=== PATIENT | male | born 1975 | race Caucasian/White ===

== ENCOUNTER 2020-03-04 21:59 | Emergency (ER) | payer BC, OTHER ==
[2020-03-04 22:06] VITALS: RESP 18; TEMP 98
[2020-03-04] MEDS ORDERED: SODIUM CHLORIDE 0.9% 1,000 ML IV STA (22:34)
[2020-03-04] MEDS ORDERED: ASPIRIN 81 MG PO STA (22:34)
[2020-03-04] MEDS ORDERED: NITROGLYCERIN SL TABS 0.4 MG TAB SUBLINGUAL STA (22:34)
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
[2020-03-04 22:45] LABS: Basophils # (A) 0.1 k/uL (0-0.2); Basophils % (A) 1 %; Eosinophils # (A) 0.5 k/uL (0-0.7); Eosinophils % (A) 5 %; HCT 49.9 % (39.0-53.0); HGB 16.3 gm/dL (13.0-17.5); Lymphocytes # (A) 3.6 k/uL (1.0-4.8); Lymphocytes % (A) 37 %; MCHC 32.7 g/dL (31.0-37.0); MCV 91.9 fL (80.0-100.0); Monocytes # (A) 0.8 k/uL (0-1.0); Monocytes % (A) 8 %; Neutrophils # (A) 4.6 k/uL (1.3-7.7); Neutrophils % (A) 47 %; Platelet Count 206 k/uL (150-450); RBC 5.43 m/uL (4.30-5.90); RDW 13.5 % (11.5-15.5); WBC 9.8 k/uL (3.8-10.6)
[2020-03-04 22:59] LABS: D-Dimer 0.26 mg/L FEU (<0.60); Partial Thromboplastin Time 25.8 sec (22.0-30.0)
[2020-03-04 23:03] LABS: ALT 19 U/L (4-49); AST 25 U/L (17-59); African American GFR (CKD) >90 (>60 ml/min/1.73 sqM); Albumin 4.4 g/dL (3.5-5.0); Alkaline Phosphatase 50 U/L (38-126); Anion Gap 8 mmol/L; Blood Urea Nitrogen 12 mg/dL (9-20); Calcium 9.6 mg/dL (8.4-10.2); Carbon Dioxide 31 mmol/L (22-30); Chloride 98 mmol/L (98-107); Glucose 97 mg/dL (74-99); Non-African American GFR(CKD) >90 (>60 ml/min/1.73 sqM); Potassium 3.9 mmol/L (3.5-5.1); Sodium 137 mmol/L (137-145); Total Bilirubin 0.5 mg/dL (0.2-1.3); Total Protein 7.2 g/dL (6.3-8.2)
--- NOTE | 2020-03-04 23:12 | XR ---
EXAMINATION TYPE: XR chest 2V DATE OF EXAM: 03/04/2020 COMPARISON: NONE HISTORY: Left side pain TECHNIQUE: FINDINGS: Heart and mediastinum are normal. Lungs are clear. Diaphragm is normal. Bony thorax appears normal. Pulmonary vascularity is normal. There are chest leads. There is old posterior right-sided r ib fracture. IMPRESSION: No active cardiopulmonary disease. Normal heart.
[2020-03-04] MEDS ORDERED: KETOROLAC 30 MG/ML 1 ML VIAL IVP STA (23:33)
[2020-03-04 23:57] VITALS: BP 103/53; PULSE 54
== END 2020-03-05 00:54 | disposition left against medical advice (07) ==
LOC: EC 21:59
DX: Z03.818 Encounter for observation for suspected exposure to other biological agents ruled out (principal); R07.9 Chest pain, unspecified; I10 Essential (primary) hypertension; Z53.29 Procedure and treatment not carried out because of patient's decision for other reasons; Z79.899 Other long term (current) drug therapy; Z79.82 Long term (current) use of aspirin; Z88.0 Allergy status to penicillin; Z87.891 Personal history of nicotine dependence; Z98.61 Coronary angioplasty status
CPT/HCPCS: 99285; 96374; 96361 ×2; 36415; 85379; 83880; 80053; 83690; 83735; 84484; 85025; 85610; 85730; 87635; 71046; J1885

== ENCOUNTER 2020-08-10 19:37 | Inpatient (IN) | payer BC ==
[2020-08-10] MEDS ORDERED: KETOROLAC 15 MG/ML 1 ML VIAL IVP STA (20:42)
[2020-08-10] MEDS ORDERED: SODIUM CHLORIDE 0.9% 1,000 ML IV STA (20:42)
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
[2020-08-10 21:14] LABS: Basophils # (A) 0.2 k/uL (0-0.2); Basophils % (A) 2 %; Eosinophils # (A) 0.7 k/uL (0-0.7); Eosinophils % (A) 6 %; HCT 49.1 % (39.0-53.0); HGB 16.1 gm/dL (13.0-17.5); Lymphocytes % (A) 27 %; MCHC 32.7 g/dL (31.0-37.0); MCV 91.6 fL (80.0-100.0); Mean Platelet Volume 7.7; Monocytes # (A) 0.8 k/uL (0-1.0); Monocytes % (A) 7 %; Neutrophils # (A) 6.2 k/uL (1.3-7.7); Neutrophils % (A) 57 %; Platelet Count 206 k/uL (150-450); RBC 5.37 m/uL (4.30-5.90); WBC 10.9 k/uL (3.8-10.6)
[2020-08-10 21:28] LABS: ALT 21 U/L (4-49); AST 31 U/L (17-59); African American GFR (CKD) >90 (>60 ml/min/1.73 sqM); Albumin 4.2 g/dL (3.5-5.0); Alkaline Phosphatase 46 U/L (38-126); Amylase 52 U/L (30-110); Anion Gap 4 mmol/L; Blood Urea Nitrogen 14 mg/dL (9-20); Calcium 9.8 mg/dL (8.4-10.2); Carbon Dioxide 29 mmol/L (22-30); Chloride 104 mmol/L (98-107); Glucose 89 mg/dL (74-99); Non-African American GFR(CKD) >90 (>60 ml/min/1.73 sqM); Sodium 137 mmol/L (137-145); Total Bilirubin 0.7 mg/dL (0.2-1.3); Total Protein 6.9 g/dL (6.3-8.2)
--- NOTE | 2020-08-10 22:03 | US ---
EXAMINATION TYPE: US gallbladder DATE OF EXAM: 08/10/2020 COMPARISON: NONE CLINICAL HISTORY: pain. Abdominal pain x 3 days. EXAM MEASUREMENTS: Liver Length: 17.3 cm Gallbladder Wall: 0.25 cm CBD: 0.76 cm Right Kidney: 11.3 x 5.4 x 5.1 cm Pancreas: Limited. Portions seen appear slightly heterogeneous. Liver: Increased attenuation. Appears heterogeneous. Measures upper limits of normal. Hypoechoic area seen near gallbladder measuring 2.6 x 3.1 x 3.0 cm. ?Focal fatty sparing? Gallbladder: Measures 9.7 cm in length. Minimal internal echoes seen versus artifact. Evidence for sonographic Villalta's sign: Yes CBD: Appears dilated. Right Kidney: No hydronephrosis or masses seen IMPRESSION: Mild fatty infiltration of the liver. No gallstones or dilated ducts. Large common bile duct could relate to some gallbladder dysfunction. No dilation of the intrahepatic bile ducts.
[2020-08-10] MEDS ORDERED: ONDANSETRON 4 MG/2 ML VIAL IVP STA (22:13)
[2020-08-10] MEDS ORDERED: HYDROmorphone 1 MG/ML 1 ML SYRINGE IVP STA (22:13)
[2020-08-10 23:07] LABS: Appearance,Urine Clear (Clear); Bilirubin,Urine Negative (Negative); Blood,Urine Negative (Negative); Color,Urine Colorless; Glucose,Urine (UA) Negative (Negative); Ketones,Urine Negative (Negative); Leukocyte Esterase,Urine Negative (Negative); Nitrite,Urine Negative (Negative); PH, Urine 6.5 (5.0-8.0); Protein,Urine Negative (Negative); Specific Gravity,Urine 1.003 (1.001-1.035); Urobilinogen,Urine <2.0 mg/dL (<2.0)
--- NOTE | 2020-08-11 00:24 | CT ---
EXAMINATION TYPE: CT abdomen pelvis w con DATE OF EXAM: 08/11/2020 COMPARISON: None HISTORY: Abdominal pain CT DLP: mGycm Automated exposure control for dose reduction was used. CONTRAST: The contrast was Isovue 100 mL. Images obtained from the diaphragm to the floor the pelvis with IV contrast. Lung bases are clear. There is no pleural effusion. Heart size is normal. There is no pericardial eff usion. Liver spleen pancreas gallbladder stomach appear intact. Bile ducts are not dilated. There is no adrenal mass. Kidneys have normal size and contour. There is no hydronephrosis. There is no retrop eritoneal adenopathy. Ureters are not dilated. Bladder distends smoothly. There is no inguinal hernia . There is no free fluid in the pelvis. There is no mesenteric edema. There is no ascites or free air . There is no bowel obstruction. Appendix is medial and appears normal. Delayed images show very shoshana le contrast in the renal collecting systems. Lumbar vertebra have normal alignment. There is no compression fracture. The posterior elements are i ntact. Bony pelvis is intact. There is no evidence of a pelvic mass. IMPRESSION: Decreased contrast in the kidneys on the delayed images could relate to some degree of renal failure. Normal appendix. Otherwise negative CT scan abdomen and pelvis.
[2020-08-11] MEDS ORDERED: KETOROLAC 15 MG/ML 1 ML VIAL IVP PRN (00:31)
[2020-08-11] MEDS ORDERED: ONDANSETRON 4 MG/2 ML VIAL IVP PRN (00:31)
[2020-08-11] MEDS ORDERED: NALOXONE 0.4 MG/ML 1 ML VIAL IV PRN (00:31)
[2020-08-11] MEDS: SODIUM CHLORIDE 0.9% 1,000 ML IV SCH ×3 (01:10→20:27)
[2020-08-11] MEDS ORDERED: FAMOTIDINE 20 MG/2 ML VIAL IV STA (01:52)
[2020-08-11] MEDS ORDERED: DICYCLOMINE 10 MG/ML 2 ML AMP IM STA (01:52)
[2020-08-11] MEDS ORDERED: MAG HYDROX/AL HYDROX/SIMETH 30 ML, HYOSCYAMINE ELIXIR 10 ML, LIDOCAINE VISCOUS 2% 10 ML PO ONE ×3 (01:52)
[2020-08-11] MEDS: HYDROmorphone 0.5 MG/0.5 ML SYRINGE IVP PRN ×3 (02:29→11:48)
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
[2020-08-11 05:57] LABS: Glucose,Whole Blood 80 mg/dL (75-99)
[2020-08-11 07:29] LABS: Basophils # (A) 0.1 k/uL (0-0.2); Basophils % (A) 1 %; Eosinophils # (A) 0.4 k/uL (0-0.7); Eosinophils % (A) 7 %; HCT 45.2 % (39.0-53.0); HGB 14.9 gm/dL (13.0-17.5); Lymphocytes # (A) 2.3 k/uL (1.0-4.8); Lymphocytes % (A) 37 %; MCH 30.5 pg (25.0-35.0); MCHC 32.9 g/dL (31.0-37.0); MCV 92.8 fL (80.0-100.0); Mean Platelet Volume 7.8; Monocytes # (A) 0.5 k/uL (0-1.0); Monocytes % (A) 8 %; Neutrophils # (A) 2.9 k/uL (1.3-7.7); Neutrophils % (A) 46 %; Platelet Count 156 k/uL (150-450); RBC 4.87 m/uL (4.30-5.90); RDW 13.1 % (11.5-15.5); WBC 6.4 k/uL (3.8-10.6)
[2020-08-11] MEDS: INSULIN ASPART (NovoLOG) 100 UNIT/ML VIAL SQ SCH ×3 (07:29→16:46)
[2020-08-11 07:44] LABS: ALT 17 U/L (4-49); AST 23 U/L (17-59); African American GFR (CKD) >90 (>60 ml/min/1.73 sqM); Albumin 3.3 g/dL (3.5-5.0); Alkaline Phosphatase 38 U/L (38-126); Anion Gap 3 mmol/L; Blood Urea Nitrogen 14 mg/dL (9-20); Calcium 8.7 mg/dL (8.4-10.2); Carbon Dioxide 27 mmol/L (22-30); Chloride 108 mmol/L (98-107); Glucose 81 mg/dL (74-99); Non-African American GFR(CKD) >90 (>60 ml/min/1.73 sqM); Potassium 4.1 mmol/L (3.5-5.1); Sodium 138 mmol/L (137-145); Total Bilirubin 0.7 mg/dL (0.2-1.3); Total Protein 5.6 g/dL (6.3-8.2)
[2020-08-11] MEDS: FLUTICASONE 50MCG/SPRAY NASAL 16GM INTRANASAL SCH (07:49)
[2020-08-11] MEDS: atenoloL 25 MG TAB PO SCH (07:49)
[2020-08-11] MEDS: PANTOPRAZOLE 40 MG TABLET PO SCH (08:02)
[2020-08-11] MEDS: ASPIRIN 325 MG TAB PO SCH (08:02)
[2020-08-11] MEDS: HEPARIN SODIUM,PORCINE 5,000 UNIT/ML 1 ML VIAL SQ SCH ×2 (08:02→17:03)
[2020-08-11] MEDS ORDERED: hydroCHLOROthiazide 25 MG TAB PO SCH (09:00)
[2020-08-11] MEDS ORDERED: SUCCINYLCHOLINE CHLORIDE VIAL 200 MG/10 ML VIAL IV ONE (09:37)
[2020-08-11] MEDS ORDERED: KETOROLAC 15 MG/ML 1 ML VIAL ONE (09:37)
[2020-08-11] MEDS ORDERED: MIDAZOLAM 2 MG/2 ML VIAL ONE (09:37)
[2020-08-11] MEDS ORDERED: LIDOCAINE 1% INJ 10MG/ML (20 ML MDV) ONE (09:37)
[2020-08-11] MEDS ORDERED: GLYCOPYRROLATE 0.2 MG/ML 2 ML VIAL ONE (09:37)
[2020-08-11] MEDS ORDERED: fentaNYL (PF) 50 MCG/ML 2 ML AMP ONE (09:37)
[2020-08-11] MEDS ORDERED: ROCURONIUM 10 MG/ML (10 ML VIAL) IV ONE (09:37)
[2020-08-11] MEDS ORDERED: NEOSTIGMINE 1 MG/ML 10 ML VIAL ONE (09:37)
[2020-08-11] MEDS ORDERED: PROPOFOL 10 MG/ML 20 ML VIAL IV ONE (09:37)
[2020-08-11 11:59] LABS: Glucose,Whole Blood 86 mg/dL (75-99)
--- NOTE | 2020-08-11 12:28 | NM ---
EXAMINATION TYPE: NM hepatobiliary w CCK DATE OF EXAM: 08/11/2020 COMPARISON: CT abdomen pelvis 08/10/2020. Ultrasound gallbladder 08/10/2020. HISTORY: Dilated bile duct, pain. TECHNIQUE: Due to prolonged fasting state of greater than 24 hours, 1.3 mcg of Kinevac was administer ed 30 minutes prior to start of imaging. After the intravenous administration of 5.2 mCi Tc 99m Mebro fenin hepatobiliary scintigraphy is performed. Immediate images post injection. Examination was stop ped after one hour at request of Dr. Whitehead. FINDINGS: There is normal initial accumulation and washout of tracer by the liver. The gallbladder is visualiz ed within 15 minutes. The small bowel activity is not seen. Gallbladder ejection fraction was not pe rformed. Therefore there is no scintigraphic evidence of cystic or common bile duct obstruction to alaniz ggest acute cholecystitis or gallbladder dyskinesia. IMPRESSION: 1. No acute cholecystitis. 2. Preferential gallbladder filling without excretion into the small bowel. Differential includes nor mal variant, chronic cholecystitis, or less likely partial common bile duct obstruction. Due to gallb ladder filling and normal hepatic clearance, high-grade common bile duct obstruction is very unlikely .
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
[2020-08-11] MEDS: HYDROmorphone 1 MG/ML 1 ML SYRINGE IVP PRN ×3 (14:33→21:41)
[2020-08-11 16:39] LABS: Glucose,Whole Blood 98 mg/dL (75-99)
[2020-08-11] MEDS: KETOROLAC 15 MG/ML 1 ML VIAL IVP SCH (17:04)
[2020-08-11 20:00] LABS: Glucose,Whole Blood 112 mg/dL (75-99)
[2020-08-12] MEDS: KETOROLAC 15 MG/ML 1 ML VIAL IVP SCH ×5 (00:52→23:08)
[2020-08-12] MEDS: HEPARIN SODIUM,PORCINE 5,000 UNIT/ML 1 ML VIAL SQ SCH ×4 (00:53→23:09)
[2020-08-12] MEDS: SODIUM CHLORIDE 0.9% 1,000 ML IV SCH ×3 (02:55→12:04)
[2020-08-12] MEDS: HYDROmorphone 1 MG/ML 1 ML SYRINGE IVP PRN ×4 (02:55→23:09)
[2020-08-12] MEDS: oxyCODONE ER 20 MG TAB.ER.12H PO SCH ×2 (05:08→17:52)
[2020-08-12 06:18] LABS: Glucose,Whole Blood 101 mg/dL (75-99)
[2020-08-12] MEDS: INSULIN ASPART (NovoLOG) 100 UNIT/ML VIAL SQ SCH ×3 (07:17→17:10)
[2020-08-12] MEDS: PANTOPRAZOLE 40 MG TABLET PO SCH (07:55)
[2020-08-12] MEDS: FLUTICASONE 50MCG/SPRAY NASAL 16GM INTRANASAL SCH (07:56)
[2020-08-12] MEDS: ASPIRIN 325 MG TAB PO SCH (07:57)
[2020-08-12] MEDS: atenoloL 25 MG TAB PO SCH (07:58)
[2020-08-12] MEDS ORDERED: IV FLUID CONTINUATION 650 ML IV ONE (08:54)
[2020-08-12 09:10] LABS: Glucose,Whole Blood 93 mg/dL (75-99)
[2020-08-12] MEDS ORDERED: MIDAZOLAM 2 MG/2 ML VIAL IV ONE (09:23)
[2020-08-12] MEDS ORDERED: DEXAMETHASONE SOD PHOSPHATE 10 MG/ML 1 ML VIAL IV ONE (09:24)
[2020-08-12] MEDS ORDERED: ONDANSETRON 4 MG/2 ML VIAL IVP ONE (09:25)
[2020-08-12] MEDS ORDERED: SODIUM CHLORIDE 0.9% 50 ML with CLINDAMYCIN 600 MG IV ONE ×2 (09:50)
[2020-08-12] MEDS ORDERED: BUPIVACAINE (PF) 0.5% 30 ML VIAL SQ ONE (10:07)
[2020-08-12] MEDS ORDERED: HYDROmorphone 1 MG/ML 1 ML SYRINGE IVP ONE ×5 (10:35→11:36)
[2020-08-12 10:45] LABS: Glucose,Whole Blood 110 mg/dL (75-99)
[2020-08-12] MEDS ORDERED: oxyCODONE ER 20 MG TAB.ER.12H PO SCH (12:00)
--- NOTE | 2020-08-12 14:29 | P.PN ---
Subjective Progress Note Date: 08/12/20 Patient is complaining of a lot of pain in his abdomen today. He underwent laparoscopic cholecystectomy this morning. He is not passing gas as of yet. He has multiple questions regarding instruction about him being able to lift weight postoperatively and when he can return to work. Objective - Vital Signs Vital signs: Vital Signs Temp 97.8 F 08/12/20 12:27 Pulse 44 L 08/12/20 12:27 Resp 18 08/12/20 12:27 BP 118/75 08/12/20 12:27 Pulse Ox 95 08/12/20 12:27 Intake & Output 08/11/20 08/12/20 08/12/20 18:59 06:59 18:59 Intake Total 1560 704 Output Total 10 Balance 1560 694 Weight 129.365 kg Intake: IV 704 Intake, IV Titration 1560 Amount Sodium Chloride 0.9% 1, 1560 000 ml @ 150 mls/hr IV . Q6H40M JULIO Rx#:[id number] Output: Estimated Blood Loss 10 Other: Voiding Method Toilet # Voids 3 2 1 - Exam General: The patient is awake and alert, in no distress Eye: there is normal conjunctiva bilaterally. Musculoskeletal: There is no pedal edema. Neurological:. Speech is normal. Skin: Skin is warm and dry Patient did not let me examine his abdomen. He said he is in a lot of pain. - Labs CBC & Chem 7: 08/11/20 06:47 08/11/20 06:47 Labs: Abnormal Lab Results - Last 24 Hours (Table) 08/11/20 08/12/20 08/12/20 Range/Units 19:59 06:17 10:43 POC Glucose (mg/dL) 112 H 101 H 110 H (75-99) mg/dL Assessment and Plan Assessment: This is a 45-year-old male with past medical history noted below the presented to the emergency room with abdominal pain. Patient was evaluated in the ER and currently admitted to the hospital for the ongoing management of his medical problems noted below. 1. Acute cholecystitis, postoperative day #0 status post laparoscopic cholecystectomy. Pain management and diet as instructed per surgery. 2. Essential hypertension, blood pressure within acceptable range. Continue captopril. Hold atenolol secondary to bradycardia. Start telemetry monitoring. 3. Chronic low back pain, on high doses of oxycodone chronically 4. Type 2 diabetes: Hold oral agents and continue sliding scale insulin 5. DVT prophylaxis with subcu heparin, GI prophylaxis with proton
[2020-08-12 16:32] LABS: Glucose,Whole Blood 162 mg/dL (75-99)
[2020-08-12] MEDS ORDERED: PANTOPRAZOLE 40 MG TABLET PO STA (20:37)
[2020-08-13] MEDS ORDERED: MENTHOL (NICE) LOZENGE MUCOUS MEM PRN (02:17)
[2020-08-13] MEDS: HYDROmorphone 1 MG/ML 1 ML SYRINGE IVP PRN ×2 (02:35→09:03)
[2020-08-13] MEDS: oxyCODONE ER 20 MG TAB.ER.12H PO SCH (05:40)
[2020-08-13] MEDS: KETOROLAC 15 MG/ML 1 ML VIAL IVP SCH (05:42)
[2020-08-13 05:54] LABS: Glucose,Whole Blood 124 mg/dL (75-99)
[2020-08-13] MEDS: INSULIN ASPART (NovoLOG) 100 UNIT/ML VIAL SQ SCH (08:19)
[2020-08-13] MEDS: FLUTICASONE 50MCG/SPRAY NASAL 16GM INTRANASAL SCH (09:03)
[2020-08-13] MEDS: HEPARIN SODIUM,PORCINE 5,000 UNIT/ML 1 ML VIAL SQ SCH (09:03)
[2020-08-13] MEDS: ASPIRIN 325 MG TAB PO SCH (09:04)
[2020-08-13] MEDS: PANTOPRAZOLE 40 MG TABLET PO SCH (09:04)
[2020-08-13 09:09] VITALS: BP 126/68; PULSE 72; RESP 18; TEMP 98.7
[2020-08-13] MEDS ORDERED: BACLOFEN 10 MG TAB PO PRN (09:20)
[2020-08-13] MEDS ORDERED: FUROSEMIDE 20 MG TAB PO SCH (09:30)
--- NOTE | 2020-08-13 09:33 | P.DS ---
Providers Date of admission: 08/12/20 15:21 Expected date of discharge: 08/13/20 Attending physician: Vanessa Marie MD Consults: 08/11/20 09:07 Consult Physician Routine Consulting Provider: Kostas Whitehead Consult Reason/Comments: RUQ abdominal pain Do you want consulting provider notified?: Yes Primary care physician: [facility] Hospital Course: This is a 45-year-old male with past medical history noted below the presented to the emergency room with abdominal pain. Patient was evaluated in the ER and currently admitted to the hospital for the ongoing management of his medical problems noted below. 1. Acute cholecystitis, postoperative day #1 status post laparoscopic cholecystectomy. Patient did well postoperatively. He was passing gas and able to tolerate diet. 2. Essential hypertension, blood pressure within acceptable range. Resume home medications. 3. Chronic low back pain, on high doses of oxycodone chronically 4. Type 2 diabetes: Resume medications. Patient will be discharged home in a stable condition. For further details about this hospitalization please refer to the electronic chart. Time spent on discharge > 30 minutes including counseling and coordination of Patient Condition at Discharge: Stable Plan - Discharge Summary New Discharge Prescriptions: Continue ALPRAZolam [Xanax] 0.5 mg PO HS PRN PRN Reason: Insomnia Baclofen [Lioresal] 20 mg PO TID PRN PRN Reason: Muscle Spasm Furosemide [Lasix] 20 mg PO DAILY Nabumetone [Relafen] 750 mg PO BID Aspirin 325 mg PO DAILY hydroCHLOROthiazide [Hydrodiuril] 25 mg PO DAILY atenoloL [Tenormin] 25 mg PO DAILY captopriL [Capoten] 25 mg PO DAILY Multivitamin/Iron/Folic Acid [Centrum Complete Multivit Tab] 1 tab PO DAILY oxyCODONE HCL [OxyCONTIN] 60 mg PO BID@0600,1800 Dapagliflozin Propanediol [Farxiga] 5 mg PO DAILY Albuterol Inhaler [Ventolin Hfa Inhaler] 2 puff INHALATION RT-QID PRN PRN Reason: Shortness Of Breath oxyCODONE HCL [OxyCONTIN] 40 mg PO DAILY@1200 metFORMIN HCL 500 mg PO BID Unknown Otc Multivitamin 1 tab PO DAILY Discharge Medication List ALPRAZolam [Xanax] 0.5 mg PO HS PRN 07/10/16 [History] Aspirin 325 mg PO DAILY 07/10/16 [History] Baclofen [Lioresal] 20 mg PO TID PRN 07/10/16 [History] Furosemide [Lasix] 20 mg PO DAILY 07/10/16 [History] Multivitamin/Iron/Folic Acid [Centrum Complete Multivit Tab] 1 tab PO DAILY 07/10/16 [History] Nabumetone [Relafen] 750 mg PO BID 07/10/16 [History] atenoloL [Tenormin] 25 mg PO DAILY 07/10/16 [History] captopriL [Capoten] 25 mg PO DAILY 07/10/16 [History] hydroCHLOROthiazide [Hydrodiuril] 25 mg PO DAILY 07/10/16 [History] oxyCODONE HCL [OxyCONTIN] 60 mg PO BID@0600,1800 07/10/16 [History] Albuterol Inhaler [Ventolin Hfa Inhaler] 2 puff INHALATION RT-QID PRN 08/11/20 [History] Dapagliflozin Propanediol [Farxiga] 5 mg PO DAILY 08/11/20 [History] Unknown Otc Multivitamin 1 tab PO DAILY 08/11/20 [History] metFORMIN HCL 500 mg PO BID 08/11/20 [History] oxyCODONE HCL [OxyCONTIN] 40 mg PO DAILY@1200 08/11/20 [History] Follow up Appointment(s)/Referral(s): Mia Huang DO [Primary Care Provider] - 1-2 days Patient Instructions/Handouts: *Surgery [facility] - Laparoscopic Cholecystectomy Discharge Instructions Discharge Disposition: HOME SELF-CARE
--- NOTE | 2020-08-17 09:48 | P.OP ---
Date of Procedure: 08/12/20 Preoperative Diagnosis: Cholecystitis Postoperative Diagnosis: Cholecystitis Procedure(s) Performed: Laparoscopic cholecystectomy Anesthesia: EDUARDO Surgeon: Kostas Whitehead Estimated Blood Loss (ml): 5 Pathology: other (Gallbladder) Condition: stable Disposition: PACU Description of Procedure: The patient was placed on the operating table. The patient received a general endotracheal tube anesthesia. The patients abdomen was prepped and draped in the usual sterile fashion. Through an infraumbilical stab incision, the fascia of the anterior abdominal wall was grasped with a pair of Kochers and then the Veress needle was placed in the peritoneal cavity. Position of the Veress needle was confirmed with positive drop test. The abdomen was then insufflated. After adequate insufflation, the 10 mm trocar was placed in the peritoneal cavity. Following this the laparoscope was placed in the peritoneal cavity. The patient was placed in the head-up, right side up position and then a 5 mm trocar was placed in the right lateral and right subcostal position under direct visualization. A 8 mm trocar was placed in the epigastric position. The gallbladder was grasped in the fundus and infundibulum. Traction on the gallbladder was placed in the lateral and the cephalad positions. The triangle of Calot was visualized.. The cystic duct was bluntly dissected until the union of the cystic duct and common bile duct was seen. A critical view of safety was achieved. The cystic duct was then divided and sealed with the Harmonic scissors. A PDS Endoloop was then placed throughout the cystic duct stump. The cystic artery divided and sealed with the Harmonic scissors. The gallbladder was then removed from the liver bed using Harmonic scissors. The gallbladder was then extracted through the epigastric port site. Operative field was checked for any bleeding spots and Harmonic scissors was used to coagulate the liver bed. The abdomen was irrigated. The trocars were removed. The skin was closed using interrupted 3-0 Vicryl suture. Dermabond dressing were applied. The patient tolerated the procedure well.
== END 2020-08-13 10:36 | disposition home or self-care (01) | DRG 419 ==
LOC: EC 19:37 → 1SOBS 08-11 00:48 → OBSVTOIN 08-12 15:21
PROVIDERS: ADMIT Internal Medicine; ATTEND Internal Medicine
PROC: 0FT44ZZ Resection of Gallbladder, Percutaneous Endoscopic Approach (ICD-10-PCS; principal; 2020-08-12 09:30)
DX: K81.0 Acute cholecystitis (principal); K83.8 Other specified diseases of biliary tract; K76.0 Fatty (change of) liver, not elsewhere classified; E11.9 Type 2 diabetes mellitus without complications; G89.29 Other chronic pain; I10 Essential (primary) hypertension; M54.5 Low back pain; R00.1 Bradycardia, unspecified; F40.240 Claustrophobia; Z79.1 Long term (current) use of non-steroidal anti-inflammatories (NSAID); Z79.82 Long term (current) use of aspirin; Z79.899 Other long term (current) drug therapy; Z79.84 Long term (current) use of oral hypoglycemic drugs; Z79.891 Long term (current) use of opiate analgesic; Z88.0 Allergy status to penicillin; Z86.718 Personal history of other venous thrombosis and embolism; Z87.891 Personal history of nicotine dependence; Z87.81 Personal history of (healed) traumatic fracture
CPT/HCPCS: 36415; 74177; 76705; 78227; 80053; 81003; 82150; 83605; 83690; 85025; 88304; 96361; 96374; 96375; 99285

== ENCOUNTER 2021-01-18 08:29 | Observation (INO) | payer BC ==
[2021-01-18 08:36] VITALS: TEMP 98.3
[2021-01-18] MEDS ORDERED: NITROGLYCERIN SL TABS 0.4 MG TAB SUBLINGUAL STA ×3 (08:43)
[2021-01-18] MEDS ORDERED: ASPIRIN 81 MG PO STA (08:43)
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
[2021-01-18 09:14] LABS: Basophils % (A) 1 %; Eosinophils # (A) 0.6 k/uL (0-0.7); Eosinophils % (A) 7 %; HCT 48.1 % (39.0-53.0); HGB 16.7 gm/dL (13.0-17.5); Lymphocytes # (A) 2.2 k/uL (1.0-4.8); Lymphocytes % (A) 26 %; MCH 31.4 pg (25.0-35.0); MCHC 34.6 g/dL (31.0-37.0); MCV 90.8 fL (80.0-100.0); Mean Platelet Volume 7.8; Monocytes # (A) 0.6 k/uL (0-1.0); Monocytes % (A) 7 %; Neutrophils # (A) 4.8 k/uL (1.3-7.7); Neutrophils % (A) 57 %; Platelet Count 192 k/uL (150-450); RDW 13.2 % (11.5-15.5); WBC 8.5 k/uL (3.8-10.6)
[2021-01-18 09:27] LABS: D-Dimer 0.29 mg/L FEU (<0.60); Partial Thromboplastin Time 25.5 sec (22.0-30.0); Prothrombin Time 10.5 sec (9.0-12.0)
[2021-01-18 09:34] LABS: ALT 20 U/L (4-49); AST 26 U/L (17-59); African American GFR (CKD) >90 (>60 ml/min/1.73 sqM); Albumin 4.1 g/dL (3.5-5.0); Alkaline Phosphatase 48 U/L (38-126); Anion Gap 4 mmol/L; Blood Urea Nitrogen 13 mg/dL (9-20); Calcium 9.7 mg/dL (8.4-10.2); Carbon Dioxide 29 mmol/L (22-30); Chloride 107 mmol/L (98-107); Glucose 99 mg/dL (74-99); Magnesium 1.9 mg/dL (1.6-2.3); Non-African American GFR(CKD) >90 (>60 ml/min/1.73 sqM); Potassium 4.2 mmol/L (3.5-5.1); Sodium 140 mmol/L (137-145); Total Bilirubin 0.7 mg/dL (0.2-1.3); Total Protein 6.7 g/dL (6.3-8.2)
--- NOTE | 2021-01-18 09:40 | XR ---
EXAMINATION TYPE: XR chest 2V DATE OF EXAM: 01/18/2021 COMPARISON: Chest x-ray March 04, 2020 HISTORY: Chest pain. TECHNIQUE: Frontal and lateral views of the chest are obtained. FINDINGS: Overlying EKG leads. There is no suspicious new focal air space opacity, pleural effusion, or pneumothorax seen. The cardiac silhouette size is stable and within normal limits. The osseous structures are intact. IMPRESSION: No acute cardiopulmonary process. No significant change from prior.
[2021-01-18] MEDS ORDERED: NITROGLYCERIN SL TABS 0.4 MG TAB SUBLINGUAL PRN (09:50)
[2021-01-18] MEDS ORDERED: ALBUTEROL NEBULIZED 2.5 MG/3 ML INHALATION PRN (10:26)
[2021-01-18] MEDS ORDERED: BACLOFEN 10 MG TAB PO PRN (10:26)
[2021-01-18] MEDS ORDERED: ALPRAZolam 0.5 MG TAB PO PRN (10:26)
[2021-01-18] MEDS ORDERED: KETOROLAC 15 MG/ML 1 ML VIAL IVP PRN (10:28)
[2021-01-18] MEDS ORDERED: hydroCHLOROthiazide 25 MG TAB PO SCH (11:00)
[2021-01-18] MEDS ORDERED: atenoloL 25 MG TAB PO SCH (11:00)
[2021-01-18] MEDS ORDERED: MULTIVITAMINS, THERA 1 EACH TAB PO SCH (11:00)
[2021-01-18] MEDS ORDERED: MELOXICAM 7.5 MG TAB PO SCH (11:00)
[2021-01-18] MEDS ORDERED: CAFFEINE CITRATE 60 MG/3 ML VIAL IV PRN (11:19)
[2021-01-18] MEDS ORDERED: AMINOPHYLLINE 500 MG/20 ML VIAL IV PRN (11:19)
[2021-01-18] MEDS ORDERED: REGADENOSON 0.4 MG/5 ML SYRINGE IV PRN (11:19)
[2021-01-18] MEDS ORDERED: NITROGLYCERIN OINT 1 INCH/GM PACKET TOPICAL SCH (12:00)
--- NOTE | 2021-01-18 12:12 | XR ---
EXAMINATION TYPE: XR cervical spine w flex/ext DATE OF EXAM: 01/18/2021 COMPARISON: NONE HISTORY: Neck pain TECHNIQUE: 6 views are submitted including flexion and extension views. FINDINGS: The odontoid is intact. There are no compression deformities. The prevertebral soft tissue structur es are within normal limits. Hypertrophic and degenerative changes seen involving the mid and lower cervical spine. Posterior spondylosis at C5-C6. There is a slight retrolisthesis of C3 relative C4 an d C4 relative to C5 noted on extension views. This corrects on neutral and flexion views. IMPRESSION: 1. Multilevel degenerative change.
--- NOTE | 2021-01-18 12:32 | ECHOF ---
Referral Reason: MEASUREMENTS -------- HEIGHT: 177.8 cm WEIGHT: 122.0 kg BP: IVSd: 1.3 cm (0.6 - 1.1) LVIDd: 4.7 cm (3.9 - 5.3) LVPWd: 1.6 cm (0.6 - 1.1) IVSs: 2.0 cm LVIDs: 2.6 cm LVPWs: 1.5 cm Ao Diam: 3.3 cm (2.0 - 3.7) AV Cusp: 2.5 cm (1.5 - 2.6) LA Diam: 3.1 cm (2.7 - 3.8) MV EXCURSION: 24.989 mm (> 18.000) MV EF SLOPE: 123 mm/s (70 - 150) EPSS: 0.6 cm MV E Alexandre: 0.84 m/s MV DecT: 268 ms MV A Alexandre: 0.80 m/s MV E/A Ratio: 1.06 RAP: 15.00 mmHg RVSP: 18.86 mmHg FINDINGS -------- This was a technically difficult study with suboptimal views. The left ventricular size is normal. There is moderate concentric left ventricular hypertrophy. O verall left ventricular systolic function is normal with, an EF between 55 - 60 %. The right ventricle is normal in size. The left atrial size is normal. The right atrium was not well visualized. Lumason used The aortic valve is trileaflet and appears structurally normal. The mitral valve is normal. There is trace mitral regurgitation. The tricuspid valve appears structurally normal. Trace tricuspid regurgitation present. Right cristi tricular systolic pressure is normal at < 35 mmHg. There is no pulmonic regurgitation present. The aortic root size is normal. Normal inferior vena cava with normal inspiratory collapse consistent with estimated right atrial pre ssure of 5 mmHg. There is no pericardial effusion. CONCLUSIONS -------- 1. The left ventricular size is normal. 2. There is moderate concentric left ventricular hypertrophy. 3. Overall left ventricular systolic function is normal with, an EF between 55 - 60 %. 4. There is trace mitral regurgitation. 5. Trace tricuspid regurgitation present. 6. There is no pericardial effusion. KITCHEN [employer]OD ASSEMBLER: Natacha Armas RD
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
[2021-01-18 14:08] VITALS: BP 116/73; PULSE 62; RESP 16
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
--- NOTE | 2021-01-18 14:09 | P.DS ---
Providers Date of admission: 01/18/21 09:50 Attending physician: Nish Olmedo MD Consults: 01/18/21 09:50 Consult Physician Urgent Consulting Provider: Valentino Mcdaniel Consult Reason/Comments: cp Do you want consulting provider notified?: Yes Primary care physician: [facility] Course: Please refer to my HPI for further details Plan - Discharge Summary New Discharge Prescriptions: Continue ALPRAZolam [Xanax] 0.5 mg PO HS PRN PRN Reason: Insomnia Baclofen [Lioresal] 20 mg PO TID PRN PRN Reason: Muscle Spasm Nabumetone [Relafen] 750 mg PO BID Aspirin 325 mg PO DAILY atenoloL [Tenormin] 25 mg PO DAILY Multivitamin/Iron/Folic Acid [Centrum Complete Multivit Tab] 1 tab PO DAILY oxyCODONE HCL [OxyCONTIN] 60 mg PO BID@0600,1800 Dapagliflozin Propanediol [Farxiga] 5 mg PO DAILY Albuterol Inhaler [Ventolin Hfa Inhaler] 2 puff INHALATION RT-QID PRN PRN Reason: Shortness Of Breath oxyCODONE HCL [OxyCONTIN] 40 mg PO DAILY@1200 Diclofenac Sodium Gel [Voltaren Gel] 2 gm TOPICAL BID Changed captopriL [Capoten] 25 mg PO DAILY #0 Discontinued hydroCHLOROthiazide [Hydrodiuril] 25 mg PO DAILY Discharge Medication List ALPRAZolam [Xanax] 0.5 mg PO HS PRN 07/10/16 [History] Aspirin 325 mg PO DAILY 07/10/16 [History] Baclofen [Lioresal] 20 mg PO TID PRN 07/10/16 [History] Multivitamin/Iron/Folic Acid [Centrum Complete Multivit Tab] 1 tab PO DAILY 07/10/16 [History] Nabumetone [Relafen] 750 mg PO BID 07/10/16 [History] atenoloL [Tenormin] 25 mg PO DAILY 07/10/16 [History] oxyCODONE HCL [OxyCONTIN] 60 mg PO BID@0600,1800 07/10/16 [History] Albuterol Inhaler [Ventolin Hfa Inhaler] 2 puff INHALATION RT-QID PRN 08/11/20 [History] Dapagliflozin Propanediol [Farxiga] 5 mg PO DAILY 08/11/20 [History] oxyCODONE HCL [OxyCONTIN] 40 mg PO DAILY@1200 08/11/20 [History] Diclofenac Sodium Gel [Voltaren Gel] 2 gm TOPICAL BID 01/18/21 [History] captopriL [Capoten] 25 mg PO DAILY #0 01/18/21 [Rx] Follow up Appointment(s)/Referral(s): Dayday Holcomb DO [STAFF PHYSICIAN] - 2 Weeks Mia Huang DO [Primary Care Provider] - 3 Days
--- NOTE | 2021-01-18 15:28 | NM ---
EXAMINATION TYPE: NM stress lexiscan cardiolite DATE OF EXAM: 01/18/2021 COMPARISON: NONE HISTORY: Chest pain TECHNIQUE: After the intravenous administration of 10.5 mCi Tc 99m Sestamibi - Cardiolite resting SP ECT images acquired 45 minutes post injection. The patient received 0.4mg Lexiscan, 25.7 mCi Tc 99m Sestamibi - Stress images obtained [address] injection FINDINGS: Review of stress and rest SPECT images demonstrates no distinct perfusion abnormality. Gated analysi s shows normal wall motion with an estimated left ventricular ejection fraction of 61 %. IMPRESSION: No scintigraphic evidence for reversible ischemia.
[2021-01-18] MEDS ORDERED: oxyCODONE ER 20 MG TAB.ER.12H PO SCH (18:00)
[2021-01-18] MEDS ORDERED: ATORVASTATIN 40 MG TAB PO SCH (21:00)
[2021-01-18] MEDS ORDERED: FAMOTIDINE 20 MG TAB PO SCH (21:00)
[2021-01-18] MEDS ORDERED: DICLOFENAC SODIUM GEL 100 GM TUBE TOPICAL SCH (21:00)
[2021-01-19 02:06] LABS: Chol/HDL Ratio 4.77; LDL Cholesterol,Calculated 104.6 mg/dL (0.0-131.0); VLDL Calculation 42.4 mg/dL (5.00-40.00)
[2021-01-19] MEDS ORDERED: NON FORMULARY DRUG (Dapagliflozin Propanediol [Farxiga] 5 MG Tablet) PO SCH (09:00)
[2021-01-19] MEDS ORDERED: ASPIRIN 325 MG TAB PO SCH (09:00)
[2021-01-19] MEDS ORDERED: ASPIRIN 81 MG PO SCH ×2 (09:00)
[2021-01-19] MEDS ORDERED: oxyCODONE ER 20 MG TAB.ER.12H PO SCH (12:00)
--- NOTE | 2021-01-19 18:00 | P.STRESS ---
- Stress Test Note Stress Test Results/Findings: Exam Performed: NM stress lexiscan cardiolite Exam Date: 01/18/21 Reason for Exam: CHEST PAIN Height: 5 ft 9 in Weight: 122.02 kg Protocol: LEXISCAN Stage: NA Duration of Exercise: NA Resting Heart Rate: 60 Resting Blood Pressure: 143/71 Maximum Achieved Heart Rate: 80 Maximum Achieved Blood Pressure: 143/71 85% PMHR: 147 100% PMHR: 173 METS: NA Technologist Comment: Stress Test Results/Findings: At baseline EKG showed normal sinus rhythm, normal axis, no significant ST or T- wave abnormalities. Patient recieved IV infusion of Lexiscan 0.4mg and at peak infusion EKG showed no significant change. Conclusions: 1. Normal EKG response to Lexiscan infusion 2. Nuclear imaging to be reported separately.
== END 2021-01-18 16:35 | disposition left against medical advice (07) ==
LOC: EC 08:29 → 6NMEDSUR 09:50
PROVIDERS: ADMIT Internal Medicine; ATTEND Internal Medicine
DX: R07.89 Other chest pain (principal); I10 Essential (primary) hypertension; K21.9 Gastro-esophageal reflux disease without esophagitis; M47.812 Spondylosis without myelopathy or radiculopathy, cervical region; E11.9 Type 2 diabetes mellitus without complications; G89.29 Other chronic pain; M54.5 Low back pain; M54.6 Pain in thoracic spine; F40.240 Claustrophobia; R61 Generalized hyperhidrosis; R06.02 Shortness of breath; R20.0 Anesthesia of skin; Z79.82 Long term (current) use of aspirin; Z79.84 Long term (current) use of oral hypoglycemic drugs; Z79.1 Long term (current) use of non-steroidal anti-inflammatories (NSAID); Z79.891 Long term (current) use of opiate analgesic; Z79.899 Other long term (current) drug therapy; Z88.0 Allergy status to penicillin; Z86.718 Personal history of other venous thrombosis and embolism; Z90.49 Acquired absence of other specified parts of digestive tract; Z87.891 Personal history of nicotine dependence; Z87.81 Personal history of (healed) traumatic fracture
CPT/HCPCS: 96374; 99285; 36415; 93005; 93017; 93306; 85379; 83880; 80061; 80053; 83735; 84484; 85025; 85610; 85730; 87635; 72052; 71046; 78452; G0378; A9500; J2785; J1885; Q9950

== ENCOUNTER 2021-03-11 23:11 | Emergency (ER) | payer BC ==
[2021-03-11] MEDS ORDERED: SODIUM CHLORIDE 0.9% 1,000 ML IV STA (23:39)
[2021-03-11] MEDS ORDERED: HYDROmorphone 1 MG/ML 1 ML SYRINGE IVP STA (23:39)
[2021-03-11] MEDS ORDERED: ONDANSETRON 4 MG/2 ML VIAL IVP STA (23:39)
[2021-03-12 00:07] LABS: Basophils # (A) 0.1 k/uL (0-0.2); Basophils % (A) 1 %; Eosinophils # (A) 0.5 k/uL (0-0.7); Eosinophils % (A) 5 %; HCT 45.1 % (39.0-53.0); HGB 15.4 gm/dL (13.0-17.5); Lymphocytes # (A) 3.4 k/uL (1.0-4.8); Lymphocytes % (A) 36 %; MCH 30.9 pg (25.0-35.0); MCHC 34.2 g/dL (31.0-37.0); MCV 90.4 fL (80.0-100.0); Mean Platelet Volume 7.3; Monocytes # (A) 0.8 k/uL (0-1.0); Monocytes % (A) 9 %; Neutrophils # (A) 4.4 k/uL (1.3-7.7); Neutrophils % (A) 47 %; Platelet Count 190 k/uL (150-450); RBC 4.99 m/uL (4.30-5.90); RDW 13.1 % (11.5-15.5); WBC 9.4 k/uL (3.8-10.6)
[2021-03-12 00:34] LABS: ALT 18 U/L (4-49); AST 27 U/L (17-59); African American GFR (CKD) >90 (>60 ml/min/1.73 sqM); Albumin 4.3 g/dL (3.5-5.0); Alkaline Phosphatase 50 U/L (38-126); Anion Gap 7 mmol/L; Blood Urea Nitrogen 15 mg/dL (9-20); Calcium 9.8 mg/dL (8.4-10.2); Carbon Dioxide 29 mmol/L (22-30); Chloride 103 mmol/L (98-107); Glucose 82 mg/dL (74-99); Lipase 156 U/L (23-300); Non-African American GFR(CKD) 87 (>60 ml/min/1.73 sqM); Potassium 4.1 mmol/L (3.5-5.1); Sodium 139 mmol/L (137-145); Total Bilirubin 0.7 mg/dL (0.2-1.3); Total Protein 7.1 g/dL (6.3-8.2)
[2021-03-12 00:44] LABS: Appearance,Urine Clear (Clear); Bilirubin,Urine Negative (Negative); Blood,Urine Negative (Negative); Color,Urine Light Yellow; Glucose,Urine (UA) 3+ (Negative); Ketones,Urine Negative (Negative); Leukocyte Esterase,Urine Negative (Negative); Nitrite,Urine Negative (Negative); Protein,Urine Negative (Negative); Specific Gravity,Urine 1.006 (1.001-1.035); Urobilinogen,Urine <2.0 mg/dL (<2.0)
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
[2021-03-12] MEDS ORDERED: HYDROmorphone 1 MG/ML 1 ML SYRINGE IVP STA (01:30)
--- NOTE | 2021-03-12 01:33 | CT ---
EXAM: CT Abdomen and Pelvis With Intravenous Contrast CLINICAL HISTORY: ITS.REASON CT Reason: abdominal pain TECHNIQUE: Axial computed tomography images of the abdomen and pelvis with intravenous contrast. CTDI is 42.78 mGy and DLP is 2087.3 mGy-cm. This CT exam was performed using one or more of the following dose reduction techniques: automated exposure control, adjustment of the mA and/or kV according to patient size, and/or use of iterative reconstruction technique. COMPARISON: 08/10/2020 FINDINGS: Lung bases: Unremarkable. No mass. No consolidation. ABDOMEN: Liver: Unremarkable. No mass. Gallbladder and bile ducts: Surgically absent. No ductal dilation. Pancreas: Unremarkable. No mass. No ductal dilation. Spleen: Unremarkable. No splenomegaly. Adrenals: Unremarkable. No mass. Kidneys and ureters: Unremarkable. No solid mass. No hydronephrosis. Stomach and bowel: Unremarkable. No obstruction. No mucosal thickening. PELVIS: Appendix: No findings to suggest acute appendicitis. Bladder: Unremarkable. No mass. Reproductive: Unremarkable as visualized. ABDOMEN and PELVIS: Intraperitoneal space: Unremarkable. No free air. No significant fluid collection. Bones/joints: No acute fracture. No dislocation. Soft tissues: Unremarkable. Vasculature: Unremarkable. No abdominal aortic aneurysm. Lymph nodes: Unremarkable. No enlarged lymph nodes. IMPRESSION: No acute intra-abdominal process.
[2021-03-12 01:48] VITALS: RESP 20
[2021-03-12] MEDS ORDERED: ACET/COD 300 MG/30 MG STARTER PACK 6 TAB BTL PO STA (02:00)
[2021-03-12 02:13] VITALS: BP 104/65; PULSE 63; TEMP 98.3
== END 2021-03-12 02:23 | disposition home or self-care (01) ==
LOC: EC 23:11
DX: R10.13 Epigastric pain (principal); M54.9 Dorsalgia, unspecified; I10 Essential (primary) hypertension; F17.200 Nicotine dependence, unspecified, uncomplicated; Z79.82 Long term (current) use of aspirin; Z86.718 Personal history of other venous thrombosis and embolism; Z90.49 Acquired absence of other specified parts of digestive tract; Z95.5 Presence of coronary angioplasty implant and graft
CPT/HCPCS: 36415; 80053; 83605; 83690; 85025; 81003; 74177; 99284; 96374; 96376; 96361 ×2; J2405; J1170 ×2; Q9967

== ENCOUNTER → 2021-10-26 | Outpatient (CLI) | payer BC ==
--- NOTE | 2021-10-26 09:37 | CT ---
EXAMINATION TYPE: CT sinus wo con DATE OF EXAM: 10/26/2021 COMPARISON: None HISTORY: chronic maxillary sinusitis CT DLP: 563 mGycm. Automated Exposure Control for Dose Reduction was Utilized. TECHNIQUE: CT scan of the sinuses is performed without contrast, axial images are obtained, coronal r eformatted images are also reviewed. FINDINGS: The paranasal sinuses including the frontal, ethmoid, sphenoid, and maxillary sinuses bila terally are remarkable for some possible air-fluid level in the left maxillary sinus, there is mucosa l thickening along the right maxillary sinus. The ostiomeatal complex is patent bilaterally on the c oronal images. Morelia cell noted on the left, smaller in the right, there is a deviated nasal septum, mild mucosal thickening present in the ethmoid air cells Visualized portion of mastoid air cells show no abnormal opacification. The globes are intact bilate rally. IMPRESSION: The sinuses are remarkable for some mild mucosal thickening is described, difficult to ex clude a small amount of fluid in the left maxillary sinus
== END | disposition home or self-care (01) ==
LOC: RADCTMAIN 06:35
PROVIDERS: ATTEND Family Medicine
DX: J34.89 Other specified disorders of nose and nasal sinuses (principal)
CPT/HCPCS: 70486

== ENCOUNTER → 2023-03-20 | Outpatient (CLI) | payer BC ==
--- NOTE | 2023-03-20 17:37 | MR ---
EXAMINATION TYPE: MR lumbar spine wo con DATE OF EXAM: 03/20/2023 COMPARISON: None HISTORY: Low back pain radiating into pauline lower extremities CONTRAST: 0 mL intravenous Gadavist. TECHNIQUE: Multiplanar, multisequence images of the lumbar spine were acquired. FINDINGS: Cord terminates at the L1 level. L5-S1: There is a large central disc herniation with extension beyond the endplate of L5. This has mo derate anterior thecal sac impression. AP spinal canal stenosis is not present. There is moderate pauline ateral foraminal stenosis. Disc desiccation is present. L4-L5: Disc desiccation without loss of disc height. There is some mild symmetrical bulging with mild anterior thecal sac impression. No AP spinal canal stenosis present. Facets are hypertrophied. No si gnificant foraminal narrowing. L3-L4: No significant disc bulge or disc herniation. No spinal canal stenosis. No foraminal stenosi s. . L2-L3: Mild asymmetric bulging of the left paracentral region is present with mild anterior thecal sa c compression. No AP spinal canal stenosis present. Neural foramen is patent. No spinal canal stenos is. No foraminal stenosis. . L1-L2: No significant disc bulge or disc herniation. No spinal canal stenosis. No foraminal stenosi s. . T12-L1: No significant disc bulge or disc herniation. No spinal canal stenosis. No foraminal stenos is. . IMPRESSION: 1. Large central disc herniation extending beyond the L5 endplate at L5-S1 has moderate anterior thec al sac compression without spinal canal stenosis. 2. Bilateral foraminal stenosis L5-S1. 3. Disc bulging L4-5 with mild anterior thecal sac impression
== END | disposition home or self-care (01) ==
LOC: RADMRIMAIN 06:25
PROVIDERS: ATTEND Anesthesiology
DX: M51.36 Other intervertebral disc degeneration, lumbar region (principal); M99.73 Connective tissue and disc stenosis of intervertebral foramina of lumbar region
CPT/HCPCS: 72148

== ENCOUNTER 2025-05-24 17:08 | Emergency (ER) | payer OTHER ==
[2025-05-24 17:35] VITALS: RESP 18
--- NOTE | 2025-05-24 17:55 | XR ---
EXAMINATION TYPE: XR ankle complete RT DATE OF EXAM: 05/24/2025 COMPARISON: NONE HISTORY: Pain, ankle injury TECHNIQUE: Frontal, lateral and oblique images of the right ankle are obtained. FINDINGS: There is no acute fracture/dislocation evident. The joint spaces appear within normal dan its. The overlying soft tissue appears unremarkable. Tiny plantar calcaneal enthesophyte. IMPRESSION: There is no acute fracture or dislocation seen. [facility], , 05/24/2025 5:53 PM
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
[2025-05-24] MEDS: ACETAMINOPHEN TAB 325 MG TAB PO STA (19:08)
[2025-05-24] MEDS: KETOROLAC 15 MG/ML 1 ML VIAL IM STA (19:09)
[2025-05-24 19:17] VITALS: BP 152/86; PULSE 62; TEMP 98
== END 2025-05-24 19:17 | disposition home or self-care (01) ==
LOC: EC 17:08
DX: S93.401A Sprain of unspecified ligament of right ankle, initial encounter (principal); Z88.0 Allergy status to penicillin; Z87.891 Personal history of nicotine dependence; W01.0XXA Fall on same level from slipping, tripping and stumbling without subsequent striking against object, initial encounter; X50.1XXA Overexertion from prolonged static or awkward postures, initial encounter; Y93.01 Activity, walking, marching and hiking
CPT/HCPCS: 73610; 99283; 96372; J1885